=== PATIENT | female | born 1985 | race Caucasian/White ===

== ENCOUNTER 2019-01-17 09:57 | Emergency (ER) | payer MEDICAID ==
[2019-01-17] MEDS: FAMOTIDINE 20 MG TAB PO (11:51)
[2019-01-17] MEDS: METOCLOPRAMIDE 10 MG TAB PO (11:51)
[2019-01-17] MEDS: DIPHENHYDRAMINE 25 MG CAP PO (11:51)
[2019-01-17] MEDS ORDERED: LORAZEPAM 1 MG TAB PO (12:00)
== END 2019-01-17 12:38 | disposition home or self-care (01) ==
LOC: FTE 09:57
DX: F41.9 Anxiety disorder, unspecified (principal); R11.10 Vomiting, unspecified
CPT/HCPCS: 99283; Z7502